=== PATIENT | female | born 1955 | race Caucasian/White ===

== ENCOUNTER → 2017-01-07 | Outpatient (CLI) | payer BC ==
[~2017-01-07] MED LIST: ADVIL,NUPRIN,M200 MG PO; AMLODIPINE BESYL5 MG PO; CIPROFLOXACIN500 M1 PO; COLACE100 MG PO; K-DUR20 MEQ PO; LISINOPRIL-HCT1 EAC3 PO; LORTAB 5-325 M1 EACH PO; METRONIDAZOLE500 MG PO; MOTRIN800 MG PO; OMEGA-3 FISH O1 EA11 PO; ONE-A-DAY ESSE1 EAC1 PO; PERCOCET 5/31 TABLET PO; ZESTORETIC 20-1 EAC1 PO; ZOFRAN4 MG PO
== END | disposition home or self-care (01) ==
LOC: CDC 11:35
DX: Z01.810 Encounter for preprocedural cardiovascular examination (principal); M79.672 Pain in left foot; M19.072 Primary osteoarthritis, left ankle and foot
CPT/HCPCS: 93000

== ENCOUNTER → 2017-07-24 | Outpatient (CLI) | payer BC | END | disposition home or self-care (01) | LOC: CDC 10:22 | DX: Z01.810 Encounter for preprocedural cardiovascular examination (principal); K57.32 Diverticulitis of large intestine without perforation or abscess without bleeding; K57.30 Diverticulosis of large intestine without perforation or abscess without bleeding | CPT/HCPCS: 93000 ==

== ENCOUNTER 2017-07-30 21:32 | Inpatient (IN) | payer BC ==
[~2017-07-30] VITALS: Ht 167.6 cm; Wt 100.7 kg
[2017-07-31 05:48] VITALS: BP 175/88
[2017-07-31 18:14] VITALS: BP 193/94
[2017-07-31 23:37] VITALS: BP 94/52
[2017-08-01 00:15] VITALS: BP 110/58
[2017-08-01 00:44] LABS: HEMATOCRIT 40.3 % (36.0-46.0); HEMOGLOBIN 13.8 G/DL (11.9-15.5); MCH 30.6 PG (29.0-34.0); MCHC 34.2 G/DL (30.0-36.0); MCV 89.4 FL (83-99); PLATELET COUNT 273 K/uL (156-360); RBC DIS.WIDTH-CV 12.9 % (11.8-14.6); RBC DIS.WIDTH-SD 42.4 % (39-53); RED BLOOD COUNT 4.51 M/uL (3.80-5.20)
[2017-08-01 05:07] VITALS: BP 169/87
[2017-08-01 07:33] VITALS: BP 120/58
[2017-08-01 15:33] VITALS: BP 121/58
[2017-08-01 19:31] VITALS: BP 162/80
[2017-08-02] VITALS (9 sets, daily range): BP systolic 166–188; BP diastolic 79–86
[2017-08-02 06:47] LABS: HEMATOCRIT 35.9 % (36.0-46.0); MCH 29.5 PG (29.0-34.0); MCHC 32.9 G/DL (30.0-36.0); MCV 89.8 FL (83-99); PLATELET COUNT 264 K/uL (156-360); RBC DIS.WIDTH-CV 13.2 % (11.8-14.6); WHITE BLOOD COUNT 15.4 K/uL (4.1-10.2)
[2017-08-02 06:48] LABS: CHLORIDE 100 MEQ/L (99-109); CREATININE 0.5 MG/DL (0.6-1.3); GFR ESTIMATE (CALCULATED) > 59 mL/min/; GLUCOSE 102 mg/dL (70-99); POTASSIUM 3.5 MEQ/L (3.7-5.4); SODIUM 140 MEQ/L (136-147); UREA NITROGEN (BUN) 7 mg/dL (9-23)
[2017-08-02 06:51] LABS: HEMOGLOBIN 11.8 G/DL (11.9-15.5)
[2017-08-03 05:31] LABS: BASOPHIL (%) 0.4 % (0-1); BASOPHIL COUNT 0.1 K/uL (0-0.1); EOSINOPHIL (%) 2.6 % (0-5); EOSINOPHIL COUNT 0.3 K/uL (0-0.3); HEMATOCRIT 33.9 % (36.0-46.0); HEMOGLOBIN 11.6 G/DL (11.9-15.5); IMMATURE GRANULOCYTE (%) 0.3 % (0.0-0.7); LYMPHOCYTE (%) 21.6 % (15-42); LYMPHOCYTE COUNT 2.6 K/uL (1.0-2.8); MCH 30.7 PG (29.0-34.0); MCHC 34.2 G/DL (30.0-36.0); MCV 89.7 FL (83-99); MONOCYTE (%) 6.8 % (3-12); MONOCYTE COUNT 0.8 K/uL (0-0.8); NEUTROPHIL (%) 68.3 % (45-76); NEUTROPHIL COUNT 8.3 K/uL (1.8-6.4); PLATELET COUNT 247 K/uL (156-360); RBC DIS.WIDTH-CV 13.1 % (11.8-14.6); RBC DIS.WIDTH-SD 42.7 % (39-53); RED BLOOD COUNT 3.78 M/uL (3.80-5.20); WHITE BLOOD COUNT 12.1 K/uL (4.1-10.2)
[2017-08-03 05:56] LABS: CHLORIDE 106 MEQ/L (99-109); CREATININE 0.5 MG/DL (0.6-1.3); GFR ESTIMATE (CALCULATED) > 59 mL/min/; GLUCOSE 113 mg/dL (70-99); SODIUM 142 MEQ/L (136-147); UREA NITROGEN (BUN) 6 mg/dL (9-23)
[2017-08-03] MEDS ORDERED: ULTRAM50 MG PO (08:31)
[2017-08-03] MEDS ORDERED: COLACE100 MG PO (11:37)
== END 2017-08-03 13:27 | disposition home or self-care (01) | DRG 330 ==
LOC: 2SOUTH → ENRESERV 21:32 → 2SOUTH 07-31 05:08 → ENRESERV 07-31 11:21 → 2SOUTH 07-31 15:31 → 5EAST 07-31 17:52 → ENPENDDIS 08-03 → 5EAST 08-03 13:27
PROVIDERS: Physician Assistant; Surgery
PROC: 0DTN4ZZ Resection of Sigmoid Colon, Percutaneous Endoscopic Approach (ICD-10-PCS; principal; 2017-07-31)
PROC: 0T778DZ Dilation of Left Ureter with Intraluminal Device, Via Natural or Artificial Opening Endoscopic (ICD-10-PCS; principal; 2017-07-31)
PROC: 0DJD8ZZ Inspection of Lower Intestinal Tract, Via Natural or Artificial Opening Endoscopic (ICD-10-PCS; principal; 2017-07-31)
DX: K57.32 Diverticulitis of large intestine without perforation or abscess without bleeding (principal); K56.690 Other partial intestinal obstruction; I10 Essential (primary) hypertension; E66.9 Obesity, unspecified; K59.00 Constipation, unspecified; E87.6 Hypokalemia; E83.51 Hypocalcemia; Z96.651 Presence of right artificial knee joint; Z87.891 Personal history of nicotine dependence; Z68.37 Body mass index [BMI] 37.0-37.9, adult
CPT/HCPCS: 80048; 85025; 85027; 88307; 94799; J0131; J0330; J1100; J1650; J2001; J2405; J2710; J2795; J3010; J3475; J7120; S0074